=== PATIENT | female | born 1955 | race Caucasian/White ===

== ENCOUNTER 2016-10-20 16:40 | Inpatient (IN) | payer BC ==
--- NOTE | ~2016-10-20 | CONSULT ---
Radiation Oncology Consult [address] [address] NAME: YOEL STATON : 51 STATUS : ADM IN [facility]#: [id number] AGE: 61 ADM/REG DATE : 10/20/16 MR#: [id number] REPORT SERV DATE: 10/22/16 DICTATED BY: BERTIN VILLAR DATE: 10/22/16 REPORT STATUS : Draft TRANSCRIBED BY: MODHoma DATE: 10/22/16 RADIATION ONCOLOGY CONSULTATION HISTORY OF PRESENT ILLNESS: Mrs. Ambar Peguero is a pleasant 61-year-old white female who describes increasing fatigue as well as right-sided weakness, preceding appearance to the emergency room last Wednesday. She states at that time, she has also seen increased confusion and dizzy headedness at times. Workup has since revealed a 2.4 cm right upper lobe lesion consistent with primary neoplasm as well as enlarged mediastinal adenopathy. Additionally, brain hemorrhage imaging shows a left frontal 1.6 cm mass and 4.6 cm left frontoparietal lesions. These lesions are partially hemorrhagic. Additionally, a large subcutaneous structure was noted on the left posterior scalp. This has since been biopsied with pathology pending. She has been placed on steroids who states her weakness is either stable or possibly worse. REVIEW OF SYSTEMS: 12-point review of systems was completed and otherwise negative. PAST MEDICAL HISTORY: Reflux, hypothyroidism, COPD, chronic smoking up to 12 years ago. SOCIAL HISTORY: Smoked until 12 years ago, approximately one pack per day. 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 FAMILY HISTORY: Father with history of stroke. Mother . No family history of malignancies. PHYSICAL EXAMINATION: GENERAL: Well-developed, well-nourished, tearful-appearing white female lying on hospital bed. ENT: Moist mucosa. Hearing unimpaired. NECK: Supple without adenopathy or thyromegaly. EYES: Sclerae anicteric. Pupils equal, round, and reactive to light. PULMONARY: Clear to auscultation bilaterally. Good respiratory effort. CARDIOVASCULAR: Regular rate and rhythm. No peripheral edema. ABDOMEN: Soft, nontender, nondistended. Positive bowel sounds. NEUROLOGIC: Strength is 5/5 in the upper and lower extremities bilaterally. The patient demonstrates some mild discoordination of the right arm and hand movements with specific testing. Sensation is unimpaired. SKIN: No rashes or bruising. IMAGING: I reviewed MRI and the CT scans and agreed the above findings. ASSESSMENT AND PLAN: 1. 1.6 and 4.6 cm left-sided brain lesions: These are presumably brain metastases from her lung cancer. If pathology from the FNA of her scalp lesion shows [id number] lung cancer, then I recommend referral for neurosurgical evaluation and potential Radiation Oncology Consult [address] [address] NAME: YOEL STATON : 53 STATUS : ADM IN PAT#: [id number] AGE: 61 ADM/REG DATE : 10/20/16 MR#: [id number] REPORT SERV DATE: 10/22/16 DICTATED BY: BERTIN VILLAR DATE: 10/22/16 REPORT STATUS : Draft TRANSCRIBED BY: GAY DATE: 10/22/16 resection of at least the largest lesion followed by stereotactic radiosurgery here at [facility]. If pathology shows small-cell lung cancer, then there is much higher chance of additional brain lesions not apparent at this time and therefore whole-brain radiotherapy would be my recommendation. 2. Informed consent: Risks, benefits, and alternatives of radiotherapy including either stereotactic radiosurgery or whole-brain radiotherapy were explained to the patient. She voiced understanding and elected to proceed as above. 3. Right-sided discoordination and potential confusion: Recommend continuing Decadron, at least 4 mg p.o. b.i.d. Tearfulness today may be amplified due to use of this medication. 4. Right-sided lung lesions: There is no distinct need for radiotherapy at this time. She has met with Dr. Wilson for potential chemotherapy in the future. It was a pleasure to participate in her care. OZ/GAY Bertin Villar MD / [id number] CC: Kenzie Santiago M.D. Edward Arrowsmith, M.D.
--- NOTE | ~2016-10-20 | DS ---
Discharge Summary [place] [id number] [place]. [address] NAME: YOEL STATON : 51 STATUS : DIS IN PAT#: [id number] AGE: 61 ADM/REG DATE : 10/20/16 MR#: [id number] REPORT SERV DATE: 11/02/16 DICTATED BY: DATE: REPORT STATUS : Draft TRANSCRIBED BY: MODL DATE: 10/28/16 ADMISSION DATE: 10/20/2016 DISCHARGE DATE: 10/28/2016 DISCHARGE DIAGNOSES: 1. 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 2. Right-sided weakness. 3. Anxiety. 4. Chronic obstructive pulmonary disease. 5. Hypothyroidism. CONSULTATIONS: 1. Dr. Bertin Villar, Radiation Oncology 10/22/2016. 2. Dr. Mynor Wilson, [facility] 10/22/2016. PERTINENT TESTS AND PROCEDURES: 1. X-rays of cervical, lumbar, thoracic spine, and skull, impression:. a. No cranial fracture identified. b. Moderate congenital leftward nasal septal deviation. c. No acute fracture or malalignment. Cervical spine were visualized. d. 2 views of thoracic spine including cross table lateral view show normal alignment, prominent anterior marginal osteophyte at T6 through T7 and T8 through T9, perivertebral body heights and intervertebral disc spaces are otherwise well maintained. No acute fracture. e. No acute fracture or malalignment of the lumbar spine. Mild degenerative disease L5 through S1. 2. CT of the brain without contrast, 10/20/2016, impression:. a. Hypodensity, left parietal and frontal lobe masses with associated edema consistent with metastasis. There is only minimal mass effect. b. Nodule in the subcutaneous fat of the left parietal scalp, which is nonspecific but could represent a metastasis. 3. Chest x-ray, 10/20/2016, impression: Lungs clear. Heart size normal. Mediastinum abnormal. There is a mass in the right mediastinum suggestive of enlarged noncalcific node. 4. CT of chest with contrast, 10/20/2016, impression: What appears to be a large primary neoplasm of the right upper lobe with ipsilateral 4R lymph node involvement. For purposes of staging, this is at T1b, N1. Chest, abdomen, and pelvis demonstrate a primary bronchogenic malignancy in the right upper lobe with ipsilateral adenopathy. This would be stage IV lung cancer. 5. MRI of the brain with and without contrast, 10/21/2016, impression: Two-sided left metastases with mass affect and very minimal left to right shift of about 3-4 mm. CHIEF COMPLAINT UPON ADMISSION: Confusion. HOSPITAL COURSE: Please refer to history and physical dated 10/20/[address] Mauricio Reynolds for complete details of patient's initial presentation upon admission and Discharge Summary [address] [address] NAME: YOEL STATON : 53 STATUS : DIS IN PAT#: [id number] AGE: 61 ADM/REG DATE : 10/20/16 MR#: [id number] REPORT SERV DATE: 11/02/16 DICTATED BY: DATE: REPORT STATUS : Draft TRANSCRIBED BY: MODHoma DATE: 10/28/16 health history. Please also refer to consultations dated 10/22/[address] Mynor Wilson, [facility], and Dr. Bertin Villar, Radiation Oncology. Refer to interim discharge summary covering dates of service between October 20 to October 26 provided by Eliana Burno, nurse practitioner. Briefly, the patient is a 61-year-old female with a past medical history significant for COPD, anxiety, hypothyroidism, and gastroesophageal reflux, who presented to the emergency department on 10/20/2016 with complaints of confusion. The patient reported that over the last 4-5 days prior to admission, she noted increased confusion, dizziness, and difficulty walking. Initial diagnostic workup included CT of the brain without contrast which reported left parietal and frontal lobe masses with associated edema consistent with metastasis. The patient was hospitalized for further evaluation and treatment. CT of the abdomen, chest, and pelvis reported what appears to be a large primary neoplasm of the right upper lobe with ipsilateral 4R lymph node involvement. Staging would be T1b, N1, M1 stage IV lung cancer. A biopsy was obtained from a left occipital scalp lesion, final diagnosis was metastatic small cell carcinoma, pulmonary origin. Oncology and Radiation Oncology were consulted for recommendations to include treatment course. The patient is currently undergoing whole brain radiation and has completed 4/10 sessions. The patient will follow up after completion of radiation therapy for plans to begin chemotherapy. During the interim while the patient is completing radiation therapy, she will transfer to residential facility for rehabilitation to increase performance status prior to starting chemotherapy. 1. Small cell lung cancer with brain metastasis. This is a new diagnosis during this admission. The patient was placed on dexamethasone IV and has been transitioned to 4 mg p.o. four times daily. The patient will also continue Keppra 500 mg p.o. every 12 hours. Continue whole brain radiation therapy and then followup to plan for chemotherapy afterwards. The patient is followed by Dr. Wilson at [facility] and Dr. Villar at Radiation Oncology. 2. Right-sided weakness, acute. This was secondary to brain metastasis. The patient has responded well to treatment with dexamethasone. The patient still has slight residual right upper and lower extremity weakness but full range of motion is intact. The patient will go to residential facility for continued rehabilitation. 3. Chronic anxiety. This has been increased secondary to new diagnosis of lung cancer. Continue patient's home dose of alprazolam and fluoxetine. 4. COPD. Continue patient's home medications. The patient has had no signs or symptoms of acute exacerbation during this admission. 5. Hypothyroidism. Continue levothyroxine. DISCHARGE CONDITION: At the time of discharge, the patient is hemodynamically stable. Discharge Summary [id number] [place]. [address] NAME: YOEL STATON : 51 STATUS : DIS IN PAT#: [id number] AGE: 61 ADM/REG DATE : 10/20/16 MR#: [id number] REPORT SERV DATE: 11/02/16 DICTATED BY: DATE: REPORT STATUS : Draft TRANSCRIBED BY: MODHoma DATE: 10/28/16 DISCHARGE DIET: Regular diet. DISCHARGE MEDICATIONS: 1. Xanax 1 mg tablet p.o. at bedtime. 2. Decadron 4 mg tablet p.o. four times daily. 3. Prozac 20 mg tablet p.o. daily. 4. Keppra 500 mg p.o. every 12 hours. 5. Synthroid 75 mcg p.o. daily before breakfast. 6. Daily multivitamin. 7. Protonix 40 mg tablet p.o. before breakfast daily. 8. Spiriva 18 mcg powder 1 capsule via [employer] inhaled daily. 9. Vitamin A 59679 units p.o. daily. 10.Acetaminophen 325 mg tablet, take 650 mg p.o. every four hours as needed. 11.Albuterol metered dose inhaler one puff inhaled every four hours as needed. DISCHARGE INSTRUCTIONS: 1. The patient will transfer to the care of [facility] residential facility. 2. Follow up with Dr. Mynor Wilson at [facility] once discharged from rehab. 3. Follow up daily with Radiation Oncology as previously scheduled. PRIMARY ONCOLOGIST: 1. Dr. Wilson. 2. Dr. Villar. ADDENDUM The patient was scheduled to discharge to residential facility on 10/28/2016. Discharge was delayed due to final insurance approval. DISCHARGE DIAGNOSES #. Small cell lung cancer with brain metastases, new diagnosis during this admission. #. Right-sided weakness, acute. #. Anxiety, chronic. #. Chronic obstructive pulmonary disease, stable. #. Hypothyroidism. The patient was seen and examined today, there were no acute changes overnight. The patient is resting comfortably. Right-sided weakness continues to improve. For all additional information and discharge instructions please refer to discharge summary, /[id number]. DICTATED BY: DENNY Martinez [facility]/GAY Discharge Summary [address] [address] NAME: YOEL STATON : 51 STATUS : DIS IN PAT#: [id number] AGE: 61 ADM/REG DATE : 10/20/16 MR#: [id number] REPORT SERV DATE: 11/02/16 DICTATED BY: DATE: REPORT STATUS : Draft TRANSCRIBED BY: GAY DATE: 10/28/16 DENNY Martinez / [id number] / [id number] CC: MD Es Gonzalez II, M.D. Mynor Wilson M.D. Bertin Villar MD
--- NOTE | ~2016-10-20 | CN ---
Consultation Report [facility] [address] [place]. [address] NAME: YOEL STATON : 51 STATUS : ADM IN [facility]#: [id number] AGE: 61 ADM/REG DATE : 10/20/16 MR#: [id number] REPORT SERV DATE: 10/22/16 DICTATED BY: MYNOR GARIBAY DATE: 10/21/16 REPORT STATUS : Draft TRANSCRIBED BY: MODHoma DATE: 10/21/16 CONSULTATION DATE OF CONSULTATION: REASON FOR REFERRAL: Brain metastases. HISTORY OF PRESENT ILLNESS: Ms. Valdes is a 61-year-old woman. She presented to the emergency department with some weakness and confusion. She reports she had generalized weakness associated with moderate confusion and difficulty walking. The confusion had lasted for four or five days and was steadily worsening. She also had some associated nausea. She came to the emergency department and had a CT scan, which showed a large left parietal lesion as well as other lesions. I personally reviewed this scan. The scan was done without contrast. Of note, she has noticed a new left parietal scalp lesion. An MRI is pending. She has had CT scans of the chest, abdomen, and pelvis. There seems to be a primary lung tumor. There is a cyst in the liver. There is no evidence of disease in the abdomen. PAST MEDICAL HISTORY: COPD, hypothyroidism, GERD. SOCIAL HISTORY: She has been a cigarette smoker. REVIEW OF SYSTEMS: Cannot be obtained secondary to confusion. PHYSICAL EXAMINATION: GENERAL: Well-developed woman, in no distress. VITAL SIGNS: 97.6, 108/55, 76, 20. HEENT: Head exam shows a possible new 2 cm subcutaneous lesion of the left scalp. Eye exam is normal. Mouth exam shows lips and gums are without abnormalities. Oropharynx is without thrush or stomatitis. NECK: Supple. There is no thyromegaly or mass. Trachea is midline. CARDIOVASCULAR: Reveals regular rate and rhythm. There is no murmur, gallop, or rub. There is no peripheral edema. LUNGS: Clear to auscultation bilaterally with normal respiratory effort. ABDOMEN: Soft. There is no hepatosplenomegaly. No mass. SKIN: Without rash or nodules other than as described above. NEUROLOGIC: Shows 5/5 strength throughout. There is obvious confusion. PSYCHIATRIC: Insight and judgment are impaired. DATA REVIEW: As per the HPI, in addition, I reviewed her laboratory studies, which were normal and unremarkable CBC and chemistry profile. ASSESSMENT: Probable lung cancer, metastatic to brain and scalp. I will first ask Pathology to do an FNA of the scalp lesion to help determine whether this is a small cell or non-small Consultation Report [place] [id number] [address] NAME: YOEL STATON : 51 STATUS : ADM IN PAT#: [id number] AGE: 61 ADM/REG DATE : 10/20/16 MR#: [id number] REPORT SERV DATE: 10/22/16 DICTATED BY: MYNOR GARIBAY DATE: 10/21/16 REPORT STATUS : Draft TRANSCRIBED BY: JULIUSL DATE: 10/21/16 carcinoma. I am not sure they would be adequate tissue from this for molecular studies if this is a non-small cell carcinoma. I will ask Radiation/Oncology to see if further stereotactic radiation will be adequate. We will obtain an MRI, which will help with this. She may need a resection of this tumor to control symptoms. I will be following along with you. GWEN/GAY Mynor Garibay M.D. / [id number] CC: Kenzie Santiago M.D.
--- NOTE | ~2016-10-20 | HP ---
History And Physical [facility] [address] [place]. [address] NAME: YOEL STATON : 51 STATUS : ADM IN [facility]#: [id number] AGE: 61 ADM/REG DATE : 10/20/16 MR#: [id number] REPORT SERV DATE: 10/20/16 DICTATED BY: MAURICIO REYNOLDS DATE: 10/20/16 REPORT STATUS : Draft TRANSCRIBED BY: GAY DATE: 10/20/16 DATE OF ADMISSION: 10/20/2016 CHIEF COMPLAINT: Confusion. HISTORY OF PRESENT ILLNESS: The patient is a 61-year-old white female, says over the last four or five days, she has noted increased confusion. She has had difficulty walking. She felt dizzy headed at times. She denies any vertigo. She denies any headache. She has not had any blurred vision. She does complain of nausea. She said this has been going on for the last few days, and she had meant to see the physician. She had not had any vomiting. She denies any diarrhea. She denies any unusual weight loss. She says she has been working and usually feels very healthy and sees her physician Dr. Es Reyna only on a yearly basis. She has had routine mammograms, which have been done at [facility] in the past and the last mammogram was done in 08/2014, which had mammographic evidence of malignancy, BI-RADS category was 1. Annual followup was recommended. This patient when she came to the emergency room had a head CT done, which showed a large mass in the left parietal area, so she has been referred to the Hospitalist Service for further treatment and evaluation. REVIEW OF SYSTEMS: A 12-point review of systems was otherwise completely negative. PAST MEDICAL HISTORY: Significant for significant for gastroesophageal reflux, hypothyroidism, and COPD. PAST SURGICAL HISTORY: None. ALLERGIES: NO KNOWN DRUG ALLERGIES. HOME MEDICATIONS: Levothyroxine 75 mcg once daily, ProAir one puff p.r.n. for shortness of breath every four hours, Prozac 20 mg once daily, Spiriva one capsule inhalation once daily, ibuprofen 200 mg as needed for headaches, vitamin A 1000 units once daily, multivitamins one tablet daily, Xanax 1 mg once at bedtime for sleep, and Nexium 40 mg once daily. SOCIAL HISTORY: Denies use of alcohol, tobacco, or illicit substances. 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 FAMILY HISTORY: Father with stroke. Mother . No other family members with cancer. PHYSICAL EXAMINATION: GENERAL: White female, sitting on the gurney, appears to be in no obvious respiratory distress. She is awake, alert, and she is oriented. VITAL SIGNS: Blood pressure 137/90, pulse of 83, temperature is 98.4, saturation of 99%. HEENT: Head is normocephalic, atraumatic. Pupils are equal, round, and reactive to light. Extraocular muscles are intact. Sclerae anicteric. Conjunctivae normal. No nystagmus is noted. Oropharynx without lesion. Tongue protrudes in midline. Uvula midline. History And Physical [address] [place]. [address] NAME: YOEL STATON : 51 STATUS : ADM IN [facility]#: [id number] AGE: 61 ADM/REG DATE : 10/20/16 MR#: [id number] REPORT SERV DATE: 10/20/16 DICTATED BY: MAURICIO REYNOLDS DATE: 10/20/16 REPORT STATUS : Draft TRANSCRIBED BY: GAY DATE: 10/20/16 NECK: Supple. No jugular venous distention. No carotid bruits or thyromegaly is appreciated. No lymphadenopathy in the neck is palpable. HEART: Regular rate and rhythm. No murmurs, rubs, or gallops are heard. PMI is nondisplaced. LUNGS: Clear to auscultation both anteriorly and posteriorly without rales, rhonchi, wheezing, or consolidation. CHEST: Exam is normal. BREASTS: No evidence of any mass or lymphadenopathy in either left or the right axillary areas. No masses palpable in the breast as well. ABDOMEN: Soft, nontender. Good bowel sounds. No rebound or guarding. No organomegaly. EXTREMITIES: Without cyanosis, clubbing, or edema. NEUROLOGIC: Strength is equal and symmetrical bilaterally. May be slightly diminished in the proximal muscles of the right lower extremity. Normal strength in dorsiflexion and plantar flexion of both feet is noted. Normal cerebellar exam. There was no evidence of any dysmetria or any past-pointing. There was no evidence of any dysdiadochokinesis. LABS: Comprehensive metabolic panel completely normal. CBC completely normal with normal PT/INR. Urinalysis completely negative. CT of the brain without contrast, hypodensity left parietal and frontal lobe masses with associated edema consistent with metastases as reported above. There is only minimal mass effect. Followup with contrast enhanced MRI may be helpful for more complete evaluation of nodule in the subcutaneous fat of the left parietal scalp, which is nonspecific, but could represent a metastatic focus as well. EKG; normal sinus rhythm, no acute ST-T wave changes. IMPRESSION: 1. Brain mass, questionable metastatic disease. 2. Gastroesophageal reflux. 3. Hypothyroidism. 4. Chronic obstructive pulmonary disease. PLAN: The patient will be admitted. CT scan of the abdomen, chest, and pelvis will be done especially given patient's past smoking history. High on the list is lung cancer versus breast cancer. Neurology consultation will be obtained. MRI of the brain will be obtained. A mammogram will be obtained as she has not had one in two years. IV dexamethasone will be started 10 mg every eight hours. Keppra IV will be given for seizure prophylaxis. Home medications have been addressed. The patient remains a full code. MARY/GAY Mauricio Reynolds M.D. / [id number] CC: History And Physical [address] [address] NAME: YOEL STATON : 51 STATUS : ADM IN [facility]#: [id number] AGE: 61 ADM/REG DATE : 10/20/16 MR#: [id number] REPORT SERV DATE: 10/20/16 DICTATED BY: MAURICIO REYNOLDS DATE: 10/20/16 REPORT STATUS : Draft TRANSCRIBED BY: MODL DATE: 10/20/16 Kenzie Santiago M.D.
--- NOTE | ~2016-10-20 | IDS ---
Interim Discharge Summary [facility] [address] [place]. [address] NAME: YOEL STATON : 51 STATUS : ADM IN [facility]#: [id number] AGE: 61 ADM/REG DATE : 10/20/16 MR#: [id number] REPORT SERV DATE: 10/26/16 DICTATED BY: MARIZA BRUNO DATE: 10/26/16 REPORT STATUS : Draft TRANSCRIBED BY: MODL DATE: 10/26/16 ADMISSION DATE: 10/20/2016 DISCHARGE DATE: DATE OF DISCHARGE: Unknown. DATE OF INTERIM NOTE: 10/26/2016. INTERIM DIAGNOSES: 1. Metastatic lung cancer with known brain metastasis new diagnosis, path positive small cell. 2. Right-sided weakness due to brain metastasis. 3. Anxiety, stable. 4. Chronic obstructive pulmonary disease, stable. 5. Hypothyroidism. IMAGIN. CT of brain, 10/20/2016. Impression, hypodensity left parietal and frontal lobe masses with associated edema, consistent with metastasis. There is only minimal mass effect. Nodule in the subcutaneous fat of the left parietal scalp, which is nonspecific but could represent a metastasis. 2. Chest x-ray, 10/20/2016. Impression, recommend baseline CT to evaluate what appears to be a right paratracheal lymph node or tumor. 3. CT abdomen and pelvis, 10/20/2016. Impression, large primary neoplasm of the right upper lobe with ipsilateral 4R lymph node involvement. 4. MRI of the brain, 10/21/2016. Impression, two left-sided metastasis with mass effect and very minimum left to right shift of about 3 to 4 mL. 5. Skull x-ray, 10/21/2016. Impression, no cranial fracture identified. Moderate congenital leftward nasal septal deviation. 6. Cervical spine x-ray, 10/21/2016. Impression, no acute fractures or malignant cervical spine were visualized. 7. X-ray of lumbar spine, 10/21/2016. No acute fracture or malignant of the lumbar spine. Mild degenerative disease, L5-S1. 8. X-ray of thoracic spine, 10/21/2016. Impression, no acute fracture or malignant thoracic spine. Spondylitic changes more prominent, anterior marginal osteophytes T6 through T7 and T8 through T9. CONSULTATION: 1. Oncology, Dr. Wilson, 10/21/2016. 2. Radiation Oncology, Dr. Villar, 10/22/2016. COURSE OF HOSPITAL STAY: Please refer to history and physical dictated by Dr. Reynolds on 10/20/2016 for complete admission details as well as consultation note by Dr. Villar and Dr. Wilson. This patient is a 61-year-old female, who presented to [facility]'s Emergency Room Interim Discharge Summary [address] [address] NAME: YOEL STATON : 51 STATUS : ADM IN PAT#: [id number] AGE: 61 ADM/REG DATE : 10/20/16 MR#: [id number] REPORT SERV DATE: 10/26/16 DICTATED BY: MARIZA BRUNO DATE: 10/26/16 REPORT STATUS : Draft TRANSCRIBED BY: GAY DATE: 10/26/16 with complaints of increased confusion ongoing four to five days prior to this hospitalization. She did state that she was having difficulty walking, did feel dizzy. Imaging was obtained, which is noted above. 1. Metastatic lung cancer with known brain METS, new diagnosis, positive path of small cell. As noted above, imaging was obtained. Lesion on the patient's skull was biopsied which did show positive small cell. Medical Oncology and Radiation Oncology were consulted. The patient was started on Decadron and Keppra. Per Dr. Villar, whole- brain radiation was recommended. The patient has completed 2 of 10 treatments. The patient is followed by Dr. Wilson. Plan of care will be for to complete radiation and then begin chemotherapy. 2. Right-sided weakness due to #1. The patient has had increased movement of the right upper and lower extremity following radiation. She has been evaluated by PT, OT is pending. The patient would prefer to be discharged to a halfway facility due to safety concerns at home. manager [facility] is working with the patient at this time. 3. Anxiety. The patient does have history of anxiety, but has had increased anxiety due to new diagnosis. The patient has continued Xanax regular dose, but Ativan has been added p.r.n. At this time, the patient does state that her anxiety is being controlled. 4. Chronic obstructive pulmonary disease. This has remained stable during her hospital stay. 5. Hypothyroidism. We continued the patient's home medication. The patient will be followed by Dr. Nehemiah Bray. [facility] Mariza Bruno NP / [id number] CC: Kenzie Santiago M.D.
[2016-10-20 15:14] LABS: BASOPHILS 1.2 %; BASOPHILS ABSOLUTE 0.07 10/3/uL (0.0-0.16); EOSINOPHILS 1.3 %; EOSINOPHILS ABSOLUTE 0.08 10/3/uL (0.0-0.53); ER CBC TAT 0 Hrs 07 Mins; HEMATOCRIT 38.7 % (36.0-48.0); HEMOGLOBIN 13.1 g/dL (12.0-16.0); IMMATURE GRANULOCYTES 0.2 %; IMMATURE GRANULOCYTES ABSOLUTE 0.01 10/3/uL (0.0-0.11); LYMPHOCYTES 34.9 %; LYMPHOCYTES ABSOLUTE 2.07 10/3/uL (0.67-4.30); MEAN CORPUS HGB CONC 33.9 g/dL (32.0-36.0); MEAN CORPUSCULAR HEMOGLOB 29.9 pg (26.0-34.0); MEAN CORPUSCULAR VOLUME 88.4 fL (80-100); MONOCYTES 5.1 %; NEUTROPHILS 57.3 %; PLATELET COUNT 246 10/3/uL (150-400); RBC DISTRIBUTION WIDTH 13.4 % (12.0-16.0); RED CELL COUNT 4.38 10/6/uL (4.0-5.6); WHITE BLOOD CELLS 5.9 10/3/uL (4.5-10.5)
[2016-10-20 15:15] LABS: MANUAL DIFF NO %
[2016-10-20 15:20] LABS: WBC (NOT ORDERED) (RFLEX) 0 (0-5)
[2016-10-20 15:23] LABS: INTERNATIONAL NORMAL RATI 1.1 UNITS (-); PARTIAL THROMBO TIME 27.7 SEC (22.5-37.2); PROTIME (NOT ORD) 13.6 SEC (12.0-14.5)
[2016-10-20 15:27] LABS: ASCORBIC ACID (UR NOT ORDER) NEG (NEG); BILIRUBIN, URINE NEGATIVE (NEG); ER URINALYSIS TAT 0 Hrs 08 Mins; KETONE, URINE NEGATIVE (NEG); LEUKOCYTE ESTERASE(NOT OR NEG (NEG); NITRITE (URINE) NEG (NEG)
[2016-10-20 15:30] LABS: A/G RATIO 1.1 (0.7-1.9); ALBUMIN 3.9 G/DL (3.5-5.0); ALKALINE PHOSPHATASE 68 U/L (45-117); BUN (BLOOD UREA NITROGEN) 13 MG/DL (6-23); CALCIUM, SERUM 8.8 MG/DL (8.5-10.4); CHLORIDE, SERUM 109 MMOL/L (96-112); CO2 (CARBON DIOXIDE) 34 MMOL/L (24-34); CREATININE 0.65 MG/DL (0.55-1.02); GFR AFRICAN AMERICAN 110 ML/MIN (>=60); GFR NON AFRICAN AMERICAN 94 ML/MIN (>=60); GLOBULIN 3.4 G/DL (2.5-4.1); GLUCOSE, SERUM 87 MG/DL (60-99); POTASSIUM, SERUM 3.9 MMOL/L (3.5-5.3); SGOT(AST) 19 U/L (5-40); SGPT(ALT) 20 U/L (5-65); SODIUM, SERUM 144 MMOL/L (135-148); TOTAL BILIRUBIN 0.5 MG/DL (0-1.2); TOTAL PROTEIN 7.3 G/DL (6.0-8.5)
[~2016-10-20 16:40] MED LIST: ADVIL PO; LEVOTHYROXIN75 MCG PO; MULTIVITAMI1 PO; NEXIUM40 PO; PROAIR HFA INH; PROZAC PO; SPIRIVA INH; VITA10 PO; XANAX1 MG PO
[2016-10-20 19:39] LABS: FERRITIN 19 NG/ML (8-252); FREE T4 0.96 NG/DL (0.76-1.46); IRON BINDING CAPACITY 344 MCG/DL (225-410); IRON, SERUM 74 MCG/DL (35-150); PHOSPHORUS, SERUM 3.2 MG/DL (2.5-4.5)
[2016-10-21 05:29] LABS: BASOPHILS 0.3 %; BASOPHILS ABSOLUTE 0.02 10/3/uL (0.0-0.16); EOSINOPHILS 0 %; HEMOGLOBIN 13.4 g/dL (12.0-16.0); IMMATURE GRANULOCYTES 0.3 %; IMMATURE GRANULOCYTES ABSOLUTE 0.02 10/3/uL (0.0-0.11); LYMPHOCYTES 12.3 %; LYMPHOCYTES ABSOLUTE 0.82 10/3/uL (0.67-4.30); MEAN CORPUS HGB CONC 33.5 g/dL (32.0-36.0); MEAN CORPUSCULAR HEMOGLOB 29.6 pg (26.0-34.0); MEAN CORPUSCULAR VOLUME 88.3 fL (80-100); MEAN PLATELET VOLUME 10.2 fL (9.2-13.0); MONOCYTES 0.9 %; MONOCYTES ABSOLUTE 0.06 10/3/uL (0.21-1.20); NEUTROPHILS 86.2 %; NEUTROPHILS ABSOLUTE 5.72 10/3/uL (2.02-8.40); PLATELET COUNT 268 10/3/uL (150-400); RED CELL COUNT 4.53 10/6/uL (4.0-5.6); WHITE BLOOD CELLS 6.6 10/3/uL (4.5-10.5)
[2016-10-21 05:31] LABS: MANUAL DIFF NO %
[2016-10-21 05:49] LABS: ALBUMIN 3.8 G/DL (3.5-5.0); CALCIUM, SERUM 9.1 MG/DL (8.5-10.4); CHLORIDE, SERUM 106 MMOL/L (96-112); CREATININE 0.61 MG/DL (0.55-1.02); GFR AFRICAN AMERICAN 112 ML/MIN (>=60); GFR NON AFRICAN AMERICAN 96 ML/MIN (>=60); PHOSPHORUS, SERUM 3.1 MG/DL (2.5-4.5); POTASSIUM, SERUM 3.5 MMOL/L (3.5-5.3); SODIUM, SERUM 141 MMOL/L (135-148)
[2016-10-21 05:51] LABS: BUN (BLOOD UREA NITROGEN) 7 MG/DL (6-23); CO2 (CARBON DIOXIDE) 26 MMOL/L (24-34); GLUCOSE, SERUM 148 MG/DL (60-99)
[2016-10-24 05:47] LABS: BASOPHILS 0 %; EOSINOPHILS 0 %; HEMATOCRIT 41.4 % (36.0-48.0); HEMOGLOBIN 13.6 g/dL (12.0-16.0); IMMATURE GRANULOCYTES 0.2 %; IMMATURE GRANULOCYTES ABSOLUTE 0.02 10/3/uL (0.0-0.11); LYMPHOCYTES 15.1 %; LYMPHOCYTES ABSOLUTE 1.35 10/3/uL (0.67-4.30); MEAN CORPUS HGB CONC 32.9 g/dL (32.0-36.0); MEAN CORPUSCULAR HEMOGLOB 29.6 pg (26.0-34.0); MEAN PLATELET VOLUME 10.3 fL (9.2-13.0); MONOCYTES 5.8 %; MONOCYTES ABSOLUTE 0.52 10/3/uL (0.21-1.20); NEUTROPHILS 78.9 %; NEUTROPHILS ABSOLUTE 7.04 10/3/uL (2.02-8.40); PLATELET COUNT 323 10/3/uL (150-400); RBC DISTRIBUTION WIDTH 13.1 % (12.0-16.0); WHITE BLOOD CELLS 8.9 10/3/uL (4.5-10.5)
[2016-10-24 05:51] LABS: MANUAL DIFF NO %
[2016-10-24 06:03] LABS: A/G RATIO 1.1 (0.7-1.9); ALBUMIN 3.6 G/DL (3.5-5.0); CALCIUM, SERUM 8.9 MG/DL (8.5-10.4); CHLORIDE, SERUM 107 MMOL/L (96-112); CO2 (CARBON DIOXIDE) 27 MMOL/L (24-34); CREATININE 0.54 MG/DL (0.55-1.02); GFR AFRICAN AMERICAN 116 ML/MIN (>=60); GFR NON AFRICAN AMERICAN 100 ML/MIN (>=60); GLOBULIN 3.4 G/DL (2.5-4.1); GLUCOSE, SERUM 120 MG/DL (60-99); POTASSIUM, SERUM 4.1 MMOL/L (3.5-5.3); SGOT(AST) 15 U/L (5-40); SGPT(ALT) 22 U/L (5-65); SODIUM, SERUM 140 MMOL/L (135-148); TOTAL BILIRUBIN 0.4 MG/DL (0-1.2)
[2016-10-24 06:04] LABS: ALKALINE PHOSPHATASE 56 U/L (45-117); BUN (BLOOD UREA NITROGEN) 21 MG/DL (6-23)
[2016-10-27 05:27] LABS: BASOPHILS 0 %; EOSINOPHILS 0 %; HEMATOCRIT 46.4 % (36.0-48.0); HEMOGLOBIN 15.9 g/dL (12.0-16.0); IMMATURE GRANULOCYTES 0.5 %; IMMATURE GRANULOCYTES ABSOLUTE 0.04 10/3/uL (0.0-0.11); LYMPHOCYTES 16.6 %; LYMPHOCYTES ABSOLUTE 1.42 10/3/uL (0.67-4.30); MANUAL DIFF NO %; MEAN CORPUS HGB CONC 34.3 g/dL (32.0-36.0); MEAN CORPUSCULAR HEMOGLOB 30.7 pg (26.0-34.0); MEAN CORPUSCULAR VOLUME 89.6 fL (80-100); MEAN PLATELET VOLUME 10.1 fL (9.2-13.0); MONOCYTES 6.3 %; MONOCYTES ABSOLUTE 0.54 10/3/uL (0.21-1.20); NEUTROPHILS 76.6 %; NEUTROPHILS ABSOLUTE 6.56 10/3/uL (2.02-8.40); PLATELET COUNT 377 10/3/uL (150-400); RBC DISTRIBUTION WIDTH 12.9 % (12.0-16.0); RED CELL COUNT 5.18 10/6/uL (4.0-5.6); WHITE BLOOD CELLS 8.6 10/3/uL (4.5-10.5)
[2016-10-27 05:40] LABS: BUN (BLOOD UREA NITROGEN) 20 MG/DL (6-23); CALCIUM, SERUM 9.2 MG/DL (8.5-10.4); CHLORIDE, SERUM 100 MMOL/L (96-112); CO2 (CARBON DIOXIDE) 28 MMOL/L (24-34); CREATININE 0.71 MG/DL (0.55-1.02); GFR AFRICAN AMERICAN 105 ML/MIN (>=60); GFR NON AFRICAN AMERICAN 91 ML/MIN (>=60); GLUCOSE, SERUM 128 MG/DL (60-99); POTASSIUM, SERUM 4.1 MMOL/L (3.5-5.3); SODIUM, SERUM 135 MMOL/L (135-148)
[2016-10-28 07:19] LABS: BASOPHILS 0 %; EOSINOPHILS 0 %; HEMATOCRIT 44.8 % (36.0-48.0); HEMOGLOBIN 14.7 g/dL (12.0-16.0); IMMATURE GRANULOCYTES 0.4 %; IMMATURE GRANULOCYTES ABSOLUTE 0.04 10/3/uL (0.0-0.11); LYMPHOCYTES ABSOLUTE 1.75 10/3/uL (0.67-4.30); MANUAL DIFF NO %; MEAN CORPUS HGB CONC 32.8 g/dL (32.0-36.0); MEAN CORPUSCULAR HEMOGLOB 29.2 pg (26.0-34.0); MEAN CORPUSCULAR VOLUME 88.9 fL (80-100); MEAN PLATELET VOLUME 10.1 fL (9.2-13.0); MONOCYTES 8.1 %; MONOCYTES ABSOLUTE 0.74 10/3/uL (0.21-1.20); NEUTROPHILS 72.5 %; NEUTROPHILS ABSOLUTE 6.66 10/3/uL (2.02-8.40); PLATELET COUNT 355 10/3/uL (150-400); RED CELL COUNT 5.04 10/6/uL (4.0-5.6); WHITE BLOOD CELLS 9.2 10/3/uL (4.5-10.5)
[2016-10-28 07:30] LABS: BUN (BLOOD UREA NITROGEN) 22 MG/DL (6-23); CALCIUM, SERUM 9.1 MG/DL (8.5-10.4); CHLORIDE, SERUM 104 MMOL/L (96-112); CO2 (CARBON DIOXIDE) 27 MMOL/L (24-34); CREATININE 0.66 MG/DL (0.55-1.02); GFR AFRICAN AMERICAN 109 ML/MIN (>=60); GFR NON AFRICAN AMERICAN 94 ML/MIN (>=60); GLUCOSE, SERUM 107 MG/DL (60-99); POTASSIUM, SERUM 4.3 MMOL/L (3.5-5.3); SODIUM, SERUM 138 MMOL/L (135-148)
[2016-11-23] MEDS ORDERED: KEPPRA500 PO (17:11)
== END 2016-10-29 16:57 | DRG 54 ==
LOC: ER 16:40 → 4EA 17:29
PROVIDERS: Emergency Medicine; Internal Medicine; Internal Medicine Hematology & Oncology; Nurse Practitioner Adult Health
DX: C79.31 Secondary malignant neoplasm of brain (principal); G93.6 Cerebral edema; C34.90 Malignant neoplasm of unspecified part of unspecified bronchus or lung; F41.9 Anxiety disorder, unspecified; J44.9 Chronic obstructive pulmonary disease, unspecified; E03.9 Hypothyroidism, unspecified; K21.9 Gastro-esophageal reflux disease without esophagitis
CPT/HCPCS: 70260; 70450; 70553; 71010; 71260; 72040; 72072; 72100; 74177; 77295; 77300; 77334; 77336; 77412; 80048; 80053; 80069; 81001; 82728; 83540; 83550; 84100; 84439; 84443; 85025; 85610; 85730; 88172; 88173; 88305; 88341; 88342; 93005; 97110-GP; 97112-GO; 97116-GP; 97162-GP; 97166-GO; 97535-GO; 99285; A9270-GY; A9577; J1953; Q9967